=== PATIENT | female | born 2000 | race Caucasian/White ===

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

== ENCOUNTER 2018-03-06 17:47 | Emergency (ER) | END 2018-03-06 21:54 | disposition home or self-care (01) ==

== ENCOUNTER 2018-04-02 18:32 | Emergency (ER) | END 2018-04-02 21:11 | disposition home or self-care (01) ==

== ENCOUNTER 2018-09-18 12:44 | Emergency (ER) | payer OTHER ==
[~2018-09-18] VITALS: Ht 165.1 cm; Wt 96.1 kg
[~2018-09-18 12:44] MED LIST changes: +ACET500C5 PO; +CEPH-443 PO; +HYDR-4011 PO; +IBUP-1561 PO; -IBUP800T25 PO; +IBUP800T48 PO; +NAPR-688 PO; +ONDA4TAB8 PO; +PHEN-538 PO
[2018-09-18 13:33] VITALS: Ht 165.1 cm; Wt 96.1 kg
[2018-09-18] MEDS ORDERED: ONDANSETRON 4 MG INJ IV STA (15:11)
[2018-09-18] MEDS ORDERED: SOD CHLORIDE 0.9% 1,000 ML IV STA (15:11)
[2018-09-18] MEDS ORDERED: KETOROLAC 30 MG INJ IV STA (15:11)
[2018-09-18] MEDS ORDERED: SOD CHLORIDE 0.9% 100 ML ONE (17:23)
[2018-09-18] MEDS ORDERED: IOHEXOL 100 ML ONE (17:23)
[2018-09-18] MEDS ORDERED: BENZ-6 PO (17:57)
[2018-09-18] MEDS ORDERED: NITR-58 PO (17:57)
[2018-09-18] MEDS ORDERED: ONDA4TAB14 PO (17:57)
[2018-09-18] MEDS ORDERED: IBUP-1542 PO (17:57)
--- NOTE | 2018-09-18 18:05 | ERD ---
ER Documentation Chief Complaint Chief Complaint c/o nausea and vomiting since Saturday HPI 18-year-old female patient with no significant past medical history presents to the ED complaining of nausea, vomiting since 4 days ago. Patient reports that she has had a few episodes of nonmucoid nonbloody vomiting. Reports that she has had a cough for the last 3 days. States that she started to have pleuritic chest pain earlier today, feels like a pressure sensation on her anterior chest as well as back pain. Denies any diarrhea, constipation, abdominal pain. Patient also reports that she is taking control, started 1 month ago. States that she also has dysuria. ROS All systems reviewed and are negative except as per history of present illness. Medications Home Meds Active Scripts Ibuprofen* (Motrin*) 600 Mg Tab, 600 MG PO Q6, #30 TAB Prov:KARYN LOPEZ PA-C 09/18/18 Ondansetron (Ondansetron Odt) 4 Mg Tab.rapdis, 4 MG PO Q6H PRN for NAUSEA AND/OR VOMITING, #10 TAB Prov:KARYN LOPEZ PA-C 09/18/18 Benzonatate* (Tessalon Perle*) 100 Mg Capsule, 100 MG PO Q8H PRN for COUGH, #20 CAP Prov:KARYN LOPEZ PA-C 09/18/18 Nitrofurantoin Monohyd Macrocr* (Macrobid*) 100 Mg Capsr, 100 MG PO BID for 7 Days, CAP Prov:KARYN LOPEZ PA-C 09/18/18 Cephalexin* (Keflex*) 500 Mg Capsule, 500 MG PO BID for 7 Days, CAP Prov:CURTIS MONTOYA PA-C 03/06/18 Ibuprofen* (Motrin*) 400 Mg Tab, 400 MG PO Q6, #30 TAB Prov:CURTIS MONTOYA PA-C 03/06/18 Phenazopyridine Hcl* (Pyridium*) 200 Mg Tab, 200 MG PO TID PRN for URINARY PAIN, #6 TAB Prov:CURTIS MONTOYA PA-C 03/06/18 Ondansetron Hcl* (Zofran*) 4 Mg Tablet, 4 MG PO Q8H PRN for NAUSEA AND/OR VOMITING, #30 TAB Prov:GRETEL SANCHEZ 08/21/17 Acetaminophen* (Tylophen*) 500 Mg Capsule, 2 CAP PO Q8H PRN for PAIN AND OR ELEVATED TEMP, #20 CAP Prov:GRETEL SANCHEZ 08/21/17 Ibuprofen* (Motrin*) 800 Mg Tab, 800 MG PO Q6H PRN for PAIN AND OR ELEVATED TEMP, #30 TAB Prov:GRETEL SANCHEZ 08/21/17 Naproxen* (Naproxen*) 500 Mg Tablet, 500 MG PO BID PRN for PAIN, #20 TAB Prov:LORETTA DIAZ DO 04/11/17 Hydrocodone/Acetaminophen ([place] 5-325 Tablet) 1 Each Tablet, 1 EACH PO Q6, #10 TAB Prov:LORETTA DIAZ DO 04/11/17 Reported Medications Ibuprofen* (Motrin*) 800 Mg Tab, 800 MG PO Q6H PRN for PAIN, TAB 12/13/13 [bactrim] No Conflict Check 12/13/13 Allergies Allergies: Coded Allergies: sulfamethoxazole (Verified Allergy, Intermediate, 09/18/18) trimethoprim (Verified Allergy, Intermediate, 09/18/18) Penicillins (Verified Allergy, Unknown, 09/18/18) amoxicillin (Verified Allergy, Unknown, 09/18/18) ampicillin (Verified Allergy, Unknown, 09/18/18) PMhx/Soc History of Surgery: No Anesthesia Reaction: No Hx Neurological Disorder: No Hx Respiratory Disorders: No Hx Cardiac Disorders: No Hx Psychiatric Problems: No Hx Miscellaneous Medical Probl: No Hx Alcohol Use: No Hx Substance Use: No Hx Tobacco Use: No Smoking Status: Never smoker FmHx Family History: No diabetes, No coronary disease Physical Exam Vitals Vital Signs Date Temp Pulse Resp B/P (MAP) Pulse Ox O2 O2 Flow FiO2 Time Delivery Rate 09/18/18 98.0 74 18 126/70 98 Room Air 18:09 (88) 09/18/18 98.4 82 20 133/77 98 13:33 (95) Physical Exam Const: [id number], well-nourished. In no acute distress. Head: Atraumatic, normocephalic Eyes: Normal Conjunctiva without injection. No purulent discharge. ENT: Normal external ear, nose. Moist oropharynx without tonsillar exudates. Non-erythematous pharynx. Uvula midline. No drooling. No trismus. Neck: No cervical midline tenderness. Full range of motion. No meningismus. No cervical lymphadenopathy. No JVD. Resp: Clear to auscultation bilaterally. No wheezing, rhonchi, rales, or crackles. No accessory muscle use. No retractions. Cardio: Regular rate and rhythm. No murmurs, rubs or gallops. Abd: Soft, nontender, non distended. Normal bowel sounds. No palpable masses. No rebound tenderness. No guarding. Negative McBurney's point. Negative psoas sign. Negative obturator sign. Skin: No petechiae or rashes Back: No midline tenderness. No CVA tenderness. Ext: No cyanosis, or edema. Neur: Awake and alert. Normal gait. Normal coordination. Psych: Normal Mood and Affect Results 24 hrs Laboratory Tests Test 09/18/18 15:25 09/18/18 15:26 09/18/18 15:34 POC Beta HCG, Qualitative NEGATIVE Urine Color YELLOW Urine Clarity SLIGHTLY CLOUDY Urine pH 5.0 Urine Specific [place] 1.021 Urine Ketones NEGATIVE mg/dL Urine Nitrite NEGATIVE mg/dL Urine Bilirubin NEGATIVE mg/dL Urine Urobilinogen NEGATIVE mg/dL Urine Leukocyte Esterase 1+ Bert/ul Urine Microscopic RBC 1 /HPF Urine Microscopic WBC 3 /HPF Urine Squamous Epithelial Cells FEW /HPF Urine Mucus MODERATE /HPF Urine Hemoglobin NEGATIVE mg/dL Urine Glucose NEGATIVE mg/dL Urine Total Protein NEGATIVE mg/dl White Blood Count 12.1 10^3/ul Red Blood Count 4.68 10^6/ul Hemoglobin 14.0 g/dl Hematocrit 42.8 % Mean Corpuscular Volume 91.5 fl Mean Corpuscular Hemoglobin 29.9 pg Mean Corpuscular 32.7 g/dl Hemoglobin Concent Red Cell Distribution Width 13.0 % Platelet Count 166 10^3/UL Mean Platelet Volume 11.4 fl Immature Granulocytes % 0.200 % Neutrophils % 82.8 % Lymphocytes % 8.9 % Monocytes % 7.3 % Eosinophils % 0.6 % Basophils % 0.2 % Nucleated Red Blood Cells % 0.0 /100WBC Immature Granulocytes # 0.030 10^3/ul Neutrophils # 10.0 10^3/ul Lymphocytes # 1.1 10^3/ul Monocytes # 0.9 10^3/ul Eosinophils # 0.1 10^3/ul Basophils # 0.0 10^3/ul Nucleated Red Blood Cells # 0.0 10^3/ul D-Dimer 549.86 ng/ml D-Dimer Comment Sodium Level 140 mmol/L Potassium Level 4.0 mmol/L Chloride Level 108 mmol/L Carbon Dioxide Level 23 mmol/L Anion Gap 9 Blood Urea Nitrogen 8 mg/dl Creatinine 0.78 mg/dl Est Glomerular Filtrat > 60 mL/min Rate mL/min Glucose Level 88 mg/dl Calcium Level 9.5 mg/dl Total Bilirubin 0.5 mg/dl Direct Bilirubin 0.00 mg/dl Indirect Bilirubin 0.5 mg/dl Aspartate Amino 34 IU/L Transf (AST/SGOT) Alanine 25 IU/L Aminotransferase (ALT/SGPT) Alkaline Phosphatase 69 IU/L Troponin I < 0.012 ng/ml Total Protein 8.1 g/dl Albumin 4.3 g/dl Globulin 3.80 g/dl Albumin/Globulin Ratio 1.13 Lipase 35 U/L Current Medications Medications Dose Sig/Dave Start Time Status Last (Trade) Ordered Route PRN Stop Time Admin Dose Reason Admin Sodium 1,000 ml @ Q1H STAT 09/18/18 DC 09/18/18 Chloride 1,000 mls/hr IV 15:11 15:29 09/18/18 16:10 Ondansetron 4 mg ONCE STAT 09/18/18 DC 09/18/18 HCl (Zofran IV 15:11 15:29 Inj) 09/18/18 15:15 Ketorolac 30 mg ONCE STAT 09/18/18 DC 09/18/18 Tromethamine IV 15:11 15:33 (Toradol) 09/18/18 15:15 IV Flush 10 ml STK-MED 09/18/18 DC (NS 10 ml) ONCE .ROUTE 17:23 09/18/18 17:24 Sodium 100 ml @ ud STK-MED 09/18/18 DC 09/18/18 Chloride ONCE .ROUTE 17:23 17:58 09/18/18 17:24 Iohexol 100 ml @ ud STK-MED 09/18/18 DC 09/18/18 ONCE .ROUTE 17: 17:59 09/18/18 17:24 Procedures/MDM 18-year-old female patient with no significant past history presents to the ED stating that she has cough, vomiting, pleuritic chest pain. Patient is afebrile and nontoxic-appearing. Patient was further worked up with CBC, CMP, lipase, UA, CXR, urine . Patient's pain and symptoms have improved after treatment with Zofran 4 mg IV, Toradol 30 mg IV, 1 L normal saline. IMPRESSION: 1. Unremarkable CT pulmonary angiogram. No evidence for pulmonary embolism. CBC: No leukocytosis. No e/o of systemic infection. No e/o anemia. CMP: No e/o severe acidosis, alkalosis, renal failure, diabetic ketoacidosis, liver disease Lipase within normal limits. Urine: No leukocyte esterase, no nitrites, no hematuria. Urine : Negative D-dimer: 549 -discussed d-dimer with Dr. Boyer, stated that we should proceed with a CTA of the chest. Discussed with patient, agreed with the management. EKG reviewed and interpreted by Dr. Shi Rate/Rhythm: [84 bpm, Normal Sinus Rhythm] No ectopy, no ST elevations, normal axis. QRS, ST, T-waves: [No changes consistent w/ acute ischemia] Impression: [No evidence of ischemia or arrhythmia] Low suspicion for acute myocardial infarction, pneumothorax, pneumonia, cardiac tamponade, Hjyvn-Pddkjwavz-Jyren Syndrome, Brugada Syndrome, pulmonary embolism, AAA, aortic dissection, thoracic aortic dissection, endocarditis, myocarditis, pericarditis, cocaine-related ischemia, Boerhaave's syndrome, cardiac dysrhythmias,meningitis, intracranial bleed, seizure, stroke, TIA or other emergent conditions.Low suspicion for ectopic , ovarian torsion, gastritis, GERD, peptic ulcer disease, cholecystitis, choledocholithiasis, cholangitis, pancreatitis, appendicitis, bowel obstruction, ileus, volvulus, nephrolithiasis, pyelonephritis, hepatitis, perforated viscus, diverticulitis, strangulated/incarcerated hernia, DKA, acute abdomen, mesenteric ischemia or other emergent conditions. Patient discussed with Dr. Boyer who agreed with the management and discharge plan. Diagnosis: Nausea, Vomiting, Pleuritic Chest Pain, Cough Discharge medications: Ibuprofen, Zofran Follow up with primary care physician in 1-2 days. Instructed patient to return to the ED sooner for any worsening symptoms. Patient's questions were answered. Patient is hemodynamically stable. Patient understood and agreed with discharge plan. Patient discharged stable. Disclaimer: Inadvertent spelling and grammatical errors are likely due to EHR/dictation software use and do not reflect on the overall quality of patient care. Also, please note that the electronic time recorded on this note does not necessarily reflect the actual time of the patient encounter. Departure Diagnosis: Primary Impression: Nausea and vomiting Vomiting type: unspecified Vomiting Intractability: unspecified Qualified Codes: R11.2 - Nausea with vomiting, unspecified Additional Impressions: Chest pain, pleuritic Cough Condition: Stable Patient Instructions: Dysuria, Viral Syndrome (Adult) Referrals: [facility] YOU HAVE RECEIVED A MEDICAL SCREENING EXAM AND THE RESULTS INDICATE THAT YOU DO NOT HAVE A CONDITION THAT REQUIRES URGENT TREATMENT IN THE EMERGENCY DEPARTMENT. FURTHER EVALUATION AND TREATMENT OF YOUR CONDITION CAN WAIT UNTIL YOU ARE SEEN IN YOUR DOCTORS OFFICE WITHIN THE NEXT 1-2 DAYS. IT IS YOUR RESPONSIBILITY TO MAKE AN APPOINTMENT FOR FOLOW-UP CARE. IF YOU HAVE A PRIMARY DOCTOR --you should call your primary doctor and schedule an appointment IF YOU DO NOT HAVE A PRIMARY DOCTOR YOU CAN CALL OUR PHYSICIAN REFERRAL HOTLINE AT IF YOU CAN NOT AFFORD TO SEE A PHYSICIAN YOU CAN CHOSE FROM THE FOLLOWING [facility] [address] [facility]. [facility] [address] [facility] [facility] [address] [facility] [address] [facility]. [facility] [address] [facility]. [facility]. [address] [facility]. [facility] YOU HAVE RECEIVED A MEDICAL SCREENING EXAM AND THE RESULTS INDICATE THAT YOU DO NOT HAVE A CONDITION THAT REQUIRES URGENT TREATMENT IN THE EMERGENCY DEPARTMENT. FURTHER EVALUATION AND TREATMENT OF YOUR CONDITION CAN WAIT UNTIL YOU ARE SEEN IN YOUR DOCTORS OFFICE WITHIN THE NEXT 1-2 DAYS. IT IS YOUR RESPONSIBILITY TO MAKE AN APPOINTMENT FOR FOLOW-UP CARE. IF YOU HAVE A PRIMARY DOCTOR --you should call your primary doctor and schedule and appointment IF YOU DO NOT HAVE A PRIMARY DOCTOR YOU CAN CALL OUR PHYSICIAN REFERRAL HOTLINE AT . IF YOU CAN NOT AFFORD TO SEE A PHYSICIAN YOU CAN CHOSE FROM THE FOLLOWING [facility] INSTITUTIONS: [facility] [address] [place] [address] [facility] [address] [place] [address] [facility] [address] [place] [address] [facility] URGENT CARE/SPECIALTIES Additional Instructions: Call your primary care doctor TOMORROW for an appointment during the next 2-3 days.See the doctor sooner or return here if your condition worsens before your appointment time. KARYN LOPEZ PA-C Sep 18, 2018 18:05
[2018-09-18 18:09] VITALS: BP 126/70; PULSE 74; RESP 18
== END 2018-09-18 18:06 | disposition home or self-care (01) ==
LOC: FTE 12:44
DX: R11.2 Nausea with vomiting, unspecified (principal); R05 Cough; R07.89 Other chest pain
CPT/HCPCS: 36415; 71045; 71275; 80053; 81001; 81025; 83690; 84484; 85025; 85378; 93005; 96361; 96374; 96375; J1885; J2405; J7030; Q9967; Z7502; Z7610